=== PATIENT | female | born 1955 | race African-American/Black ===

== ENCOUNTER 2023-05-04 10:06 | Emergency (ER) | payer BC, MEDICAID, OTHER ==
[~2023-05-04] VITALS: Ht 157.5 cm; Wt 118.0 kg
[~2023-05-04 10:06] MED LIST: HYDROCHLOROTHIAZIDE; INSULIN; LASIX; LISINOPRIL; METFORMIN
[2023-05-04 10:09] VITALS: TEMP 97.9; O2SAT 97
[2023-05-04] MEDS ORDERED: ACETAMINOPHEN WITH CODEINE 300/30MG TABLET PO ONE (10:15)
[2023-05-04] MEDS ORDERED: TOPUD PO (11:31)
[2023-05-04 12:07] VITALS: BP 145/87; PULSE 76; RESP 18
[2023-05-04] MEDS ORDERED: ACETAMINOPHEN WITH CODEINE 300/30MG TABLET PO NR (12:07)
== END 2023-05-04 12:40 | disposition home or self-care (01) ==
LOC: ER 10:06
DX: M25.552 Pain in left hip (principal); M79.10 Myalgia, unspecified site; E11.9 Type 2 diabetes mellitus without complications; I10 Essential (primary) hypertension
CPT/HCPCS: 72170; 99284